=== PATIENT | male | born 1935 | race African-American/Black ===

== ENCOUNTER 2020-11-18 21:08 | Emergency (ER) | payer OTHER, MEDICAID ==
[~2020-11-18] VITALS: Ht 175.3 cm; Wt 78.0 kg
[2020-11-18] MEDS ORDERED: ONDANSETRON HCL 4MG/2ML INJ IV ONE (21:15)
[2020-11-18] MEDS ORDERED: METOCLOPRAMIDE HCL 10MG/2ML VIAL IV ONE (21:15)
[2020-11-18 22:17] LABS: BASOPHILS % 0.2 % (0.0-2.0); EOSINOPHILS % 0.7 % (0.0-5.0); HEMOGLOBIN. 11.3 g/dL (14.0-18.0); MEAN CORPUSCULAR HEMOGLOBIN 30.5 pg (28.0-32.0); MEAN CORPUSCULAR VOLUME 86.4 fL (80.0-94.0); MEAN PLATELET VOLUME 7.5 fl (7.4-10.4); MONOCYTES % 5.9 % (2.0-8.0); NEUTROPHILS % 79.2 % (40.0-76.0); PLATELET 241 x1000/uL (130-400); RED BLOOD CELL COUNT 3.71 mill/uL (4.7-6.1); RED CELL DISTRIBUTION WIDTH 14.6 % (11.6-14.6)
[2020-11-18 22:18] LABS: CHLORIDE 101 mEq/L (98-107)
[2020-11-18 22:19] LABS: PROTHROMBIN TIME 11.1 sec (9.6-11.0)
[2020-11-18 22:22] LABS: ETHANOL BLOOD < 10 mg/dL
[2020-11-18 22:25] LABS: LDL CHOLESTEROL 95 mg/dL (5-100)
[2020-11-18] MEDS ORDERED: IOHEXOL-350 100 ML BOTTLE ONE (23:35)
[2020-11-19] MEDS ORDERED: CEFTRIAXONE 1 G PREMIX 50 ML IV ONE (00:15)
[2020-11-19] MEDS ORDERED: AZITHROMYCIN 500 MG in DEXT 5% WATER 250 ML IV ONE (00:15)
[2020-11-19 04:00] VITALS: BP 112/62
== END 2020-11-19 04:54 | disposition short-term general hospital (02) ==
LOC: ER 21:08 → CANBEDREQ 11-19 02:08 → ER 11-19 04:54
DX: G45.9 Transient cerebral ischemic attack, unspecified (principal); I10 Essential (primary) hypertension
CPT/HCPCS: 36415; 70450; 70496; 70498; 71045; 80053; 80320; 82962; 83605; 83721; 84484; 85025; 85610; 87040; 93005; 96365; 96367; 96375; 99285; J0456; J2405; J2765; J7060; Q9967; G0480

== ENCOUNTER 2020-11-19 19:45 | Emergency (ER) | payer OTHER, MEDICAID ==
[~2020-11-19] VITALS: Ht 167.6 cm; Wt 73.0 kg
[2020-11-19] MEDS ORDERED: SODIUM CHLORIDE 0.9% 1,000 ML IV ONE (20:45)
[2020-11-19] MEDS ORDERED: SODIUM CHLORIDE 0.9% 1000ML BAG (SEPSIS BOLUS) IV ONE (20:45)
[2020-11-19] MEDS ORDERED: AZITHROMYCIN 500 MG in DEXT 5% WATER 250 ML IV ONE (20:45)
[2020-11-19] MEDS ORDERED: CEFTRIAXONE 1 G PREMIX 50 ML IV ONE (20:45)
[2020-11-19 21:21] LABS: CLARITY URINE CLEAR (CLEAR); COLOR URINE YELLOW (YELLOW); KETONES URINE NEGATIVE (NEGATIVE); LEUKOCYTE ESTERASE URINE 1+ (NEGATIVE); NITRITE URINE NEGATIVE (NEGATIVE); OCCULT BLOOD URINE 1+ (NEGATIVE); PH URINE 5.5 (4.5-8.0); PROTEIN URINE TRACE (NEGATIVE); UROBILINOGEN URINE 0.2 E.U./dL (0.2-1.0)
[2020-11-19 21:38] LABS: HEMATOCRIT. 31.4 % (42.0-52.0); HEMOGLOBIN. 10.7 g/dL (14.0-18.0); MEAN CORPUSCULAR HEMOGLOBIN 29.9 pg (28.0-32.0); MEAN CORPUSCULAR VOLUME 87.5 fL (80.0-94.0); MEAN PLATELET VOLUME 8.1 fl (7.4-10.4); PLATELET 224 x1000/uL (130-400); RED BLOOD CELL COUNT 3.58 mill/uL (4.7-6.1); RED CELL DISTRIBUTION WIDTH 15.1 % (11.6-14.6)
[2020-11-19 21:45] LABS: CHLORIDE 102 mEq/L (98-107)
[2020-11-19 21:51] LABS: INR 1.1; PROTHROMBIN TIME 11.6 sec (9.6-11.0)
[2020-11-19 21:54] LABS: CREATINE KINASE 507 IU/L (39-308); PLATELET ESTIMATE NORMAL
[2020-11-20 03:30] VITALS: BP 127/58
== END 2020-11-20 04:02 | disposition short-term general hospital (02) ==
LOC: ER 19:45
DX: R53.1 Weakness (principal); R41.82 Altered mental status, unspecified; R00.0 Tachycardia, unspecified; I10 Essential (primary) hypertension; Z86.73 Personal history of transient ischemic attack (TIA), and cerebral infarction without residual deficits; Z98.890 Other specified postprocedural states; Z53.29 Procedure and treatment not carried out because of patient's decision for other reasons
CPT/HCPCS: 36415; 71045; 80053; 81003; 82550; 82728; 83605; 83615; 83880; 84145; 84484; 85025; 85384; 85610; 87040; 87086; 93005; 96365; 96366; 96368; 99285; J0456; J0696; J7060